=== PATIENT | male | born 1935 | race Caucasian/White ===

== ENCOUNTER → 2023-06-21 | Outpatient (CLI) | payer MEDICARE, BC ==
[2023-06-21 09:46] LABS: African American GFR (CKD) >90 (>60 ml/min/1.73 sqM); Blood Urea Nitrogen 19 mg/dL (9-20); Non-African American GFR(CKD) 86 (>60 ml/min/1.73 sqM)
--- NOTE | 2023-06-21 10:51 | CT ---
EXAMINATION TYPE: CT chest w con CT DLP: 680 mGycm, Automated exposure control for dose reduction was used. DATE OF EXAM: 06/21/2023 10:13 AM COMPARISON: None CLINICAL INDICATION:Male, 87 years old with history of R91.1 SOLITARY PULMONARY NODULE; PHH, lung nod ule TECHNIQUE: Multiple axial images were obtained through the chest. Sagittal and coronal reformats were created for review. Contrast used:100 mL of Isovue 300 with IV Contrast (None if empty) Oral contrast used: (None if empty) FINDINGS: LUNGS/ PLEURA: No evidence for focal consolidation, pneumothorax or pleural effusion. No suspicious p ulmonary nodules. AIRWAY: Patent and unremarkable. HEART: Size within normal limits. Aortic valve repair changes. Mitral valve annular cusp patient's. C ardiac conduction leads terminating in right ventricle and atrium. Mild to moderate coronary artery a therosclerosis. MEDIASTINUM: No gross evidence of adenopathy. VASCULATURE: No aortic aneurysm. MUSCULOSKELETAL: No acute osseous abnormalities SOFT TISSUES/LYMPH NODES: Enlarged heterogenous thyroid gland most pronounced in the right giving int o the superior mediastinum. LOWER NECK: No significant findings. UPPER ABDOMEN: The left 13 mm renal calculus. Right fat-containing adrenal lesion measuring 13 mm com patible with myelolipoma. There is arterial phase enhancing lesion in the right hepatic lobe series 3 image 67 which is somewhat ill-defined and irregular in shape. IMPRESSION: 1. No evidence for suspicious pulmonary nodule. No priors are available for comparison. 2. No evidence for focal airspace consolidation. 3. Right adrenal myelolipoma. 4. Nonobstructing left renal calculus. 5. Simple appearing right renal cyst. 6. Arterial phase enhancing lesion in the right hepatic lobe which is indeterminate. Further evaluat ion with MRI liver mass protocol could provide further sacralization. This is somewhat ill-defined an d possibly relating to vascular shunting. 7. Enlarged right thyroid nodule which extends into the superior mediastinum. Complete evaluation wi thyroid ultrasound is recommended. Follow up recommendations for incidental pulmonary nodules, if there are any, are per [employer] or [employer]. [email or web address]
== END | disposition home or self-care (01) ==
LOC: RADCTMAIN 08:59
PROVIDERS: ATTEND Internal Medicine
DX: N20.0 Calculus of kidney (principal); N28.1 Cyst of kidney, acquired; D17.79 Benign lipomatous neoplasm of other sites; E04.1 Nontoxic single thyroid nodule; R91.1 Solitary pulmonary nodule
CPT/HCPCS: 84439; 82565; 84443; 84520; 71260; 36415; Q9967

== ENCOUNTER → 2023-06-21 | Outpatient (CLI) | payer MEDICARE, BC ==
--- NOTE | 2023-06-21 17:29 | US ---
EXAMINATION TYPE: US thyroid st tissue head/neck DATE OF EXAM: 06/21/2023 COMPARISON: NONE CLINICAL INDICATION: Male, 87 years old with history of E04.2 NONTOXIC MULTINODULAR GOITER; GLAND SIZE: Right Lobe: 5.2 x 3.3 x 2.7 cm Overall Parenchyma: heterogeneous Left Lobe: 4.6 x 1.4 x 1.3 cm Overall Parenchyma: heterogeneous Isthmus Thickness: cm NODULES RIGHT: # of nodules measured on right: 1 1. 3.1 X 2.6 x 2.8 cm, mid, solid or almost completely solid, hypoechoic nodule, which is wider jose n tall, with ill-defined margins, without echogenic foci. TR 4. Prior size: no previous LEFT: # of nodules measured on left: 2 1. 0.7 X 0.7 x 0.8 cm, lower medial, cystic or almost completely cystic, anechoic nodule, which is wider than tall, with smooth margins, without echogenic foci. TR 1. Prior size: no previous 2. 1.4 X 1.0 x 1.2 cm, mid, solid or almost completely solid, hypoechoic nodule, which is wider th an tall, with ill-defined margins, without echogenic foci. TR 4. Prior size: no previous ISTHMUS: # of nodules measured in the isthmus: 0 Bilateral neck scanned, no evidence of lymphadenopathy. IMPRESSION: 1. Right thyroid lobe 3.1 cm TR 4 nodule. Fine-needle aspiration is recommended. 2. Left thyroid lobe 1.4 cm TR 4 nodule. Follow-up thyroid ultrasound in 1 year is recommended. 3. Additional subcentimeter left thyroid lobe TR 1 nodule. No follow is recommended.
== END | disposition home or self-care (01) ==
LOC: RADUSWWP 10:04
PROVIDERS: ATTEND Internal Medicine Endocrinology, Diabetes & Metabolism
DX: E04.2 Nontoxic multinodular goiter (principal)
CPT/HCPCS: 76536